=== PATIENT | male | born 1995 | race American Indian/Alaskan Native ===

== ENCOUNTER 2019-02-20 16:11 | Emergency (ER) | payer OTHER ==
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
--- NOTE | 2019-02-20 17:16 | XRay Report ---
Lumbar spine-2 views INDICATION: low back pain. COMPARISON: None. IMPRESSION: Normal alignment. No significant DJD. 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 Signer Name: Rivas Junior MD Signed: 02/20/2019 5:12 PM Workstation Name: [id number]
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
== END 2019-02-20 17:49 | disposition home or self-care (01) ==
LOC: ED 16:11
DX: S66.912A Strain of unspecified muscle, fascia and tendon at wrist and hand level, left hand, initial encounter (principal); M54.5 Low back pain; M25.522 Pain in left elbow; F12.10 Cannabis abuse, uncomplicated; Z79.899 Other long term (current) drug therapy; V49.59XA Passenger injured in collision with other motor vehicles in traffic accident, initial encounter; Y93.89 Activity, other specified; Y92.410 Unspecified street and highway as the place of occurrence of the external cause; Y99.8 Other external cause status
CPT/HCPCS: 72100

== ENCOUNTER 2020-02-01 08:32 | Emergency (ER) | payer SELFPAY ==
[2020-02-01 09:39] LABS: Hematocrit 44.2 % (35.5-45.6); Hemoglobin 14.7 gm/dl (11.8-15.2); Mean Corpuscular HGB Conc 33 % (32-34); Mean Corpuscular Volume 94 fl (84-94); Platelet Count 201 K/mm3 (140-440); Red Blood Count 4.69 M/mm3 (3.65-5.03)
[2020-02-01 09:56] LABS: Alanine Aminotransferase 30 units/L (7-56); Albumin 4.3 g/dL (3.9-5); BUN/Creatinine Ratio 18; Blood Urea Nitrogen 16 mg/dL (9-20); Calcium 9.3 mg/dL (8.4-10.2); Hemolysis Index 7
[2020-02-01] MEDS ORDERED: FAMOTIDINE 20 MG TAB PO ONE (10:23)
[2020-02-01] MEDS ORDERED: ALUM-MAG HYDROXIDE-SIMETHICONE 200-200-20MG/5ML ORAL LIQD 30 ML PO ONE (10:23)
[2020-02-01] MEDS ORDERED: HYOSCYAMINE SUBL 0.125 MG TAB SL ONE (10:23)
[2020-02-01 10:25] LABS: Bilirubin,Urine NEG (Negative); Blood,Urine NEG (Negative); Color,Urine Yellow (Yellow); Mucus,Urine FEW /HPF; RBC,Urine < 1.0 /HPF (0.0-6.0); Urobilinogen,Urine < 2.0 mg/dL (<2.0)
--- NOTE | 2020-02-01 10:39 | Emergency Department Report ---
ED Abdominal Pain HPI - General Chief Complaint: Abdominal Pain Stated Complaint: ABD PAIN Time Seen by Provider: 02/01/20 10:16 Source: patient Mode of arrival: Ambulatory Limitations: No Limitations - History of Present Illness Initial Comments: Patient is a 24-year-old male presents emergency room complaints of epigastric abdominal pain that began this morning. He states that at first it was moving around the abdomen. He states that it has since improved since this morning and he is already feeling better. He states initially he had some nausea but that has also improved. He denies any vomiting, diarrhea, fever, urinary symptoms, pain or swelling in the testicles. He states he is having normal bowel movements. He is tolerating p.o. intake. He states he has a past medical history of hemorrhoids. No allergies to medications. He endorses tobacco and marijuana use. He states he occasionally drinks alcohol. - Related Data Previous Rx's Medication Instructions Recorded Last Taken Type Ibuprofen [Motrin 600 MG tab] 600 mg PO Q8H PRN #20 tablet 02/20/19 Unknown Rx Famotidine [Pepcid] 40 mg PO QHS #14 tablet 02/01/20 Unknown Rx Mag Hydrox/Aluminum Hyd/Simeth 10 ml PO QID PRN #1 bottle 02/01/20 Unknown Rx [Maalox Advanced Suspension] Allergies Allergy/AdvReac Type Severity Reaction Status Date / Time No Known Allergies Allergy Verified 02/20/19 16:13 ED Review of Systems ROS: Stated complaint: ABD PAIN Other details as noted in HPI Comment: All other systems reviewed and negative ED Past Medical Hx - Past Medical History Previous Medical History?: No - Surgical History Past Surgical History?: No - Social History Smoking Status: Current Every Day Smoker Substance Use Type: Alcohol, Marijuana - Medications Home Medications: Home Medications Medication Instructions Recorded Confirmed Last Taken Type Ibuprofen [Motrin 600 MG tab] 600 mg PO Q8H PRN #20 tablet 02/20/19 Unknown Rx Famotidine [Pepcid] 40 mg PO QHS #14 tablet 02/01/20 Unknown Rx Mag Hydrox/Aluminum Hyd/Simeth 10 ml PO QID PRN #1 bottle 02/01/20 Unknown Rx [Maalox Advanced Suspension] ED Physical Exam - General Limitations: No Limitations General appearance: alert, in no apparent distress - Head Head exam: Present: atraumatic, normocephalic - Eye Eye exam: Present: normal appearance - ENT ENT exam: Present: mucous membranes moist - Respiratory Respiratory exam: Present: normal lung sounds bilaterally. Absent: respiratory distress, wheezes, rales, rhonchi, stridor, chest wall tenderness, accessory muscle use, decreased breath sounds, prolonged expiratory - Cardiovascular Cardiovascular Exam: Present: regular rate, normal rhythm, normal heart sounds. Absent: systolic murmur, diastolic murmur, rubs, gallop - GI/Abdominal GI/Abdominal exam: Present: soft, normal bowel sounds, other (negative murphys sign, negative mcburneys point ttp, no karimi turners or cullens sign). Absent: distended, tenderness, guarding, rebound, rigid - Neurological Exam Neurological exam: Present: alert, oriented X3 - Psychiatric Psychiatric exam: Present: normal affect, normal mood - Skin Skin exam: Present: warm, dry, intact ED Course Vital Signs 02/01/20 02/01/20 08:35 10:58 Temperature 98 F 98.2 F Pulse Rate 88 62 Respiratory 20 18 Rate Blood Pressure 104/48 Blood Pressure 116/77 [Right] O2 Sat by Pulse 96 100 Oximetry ED Medical Decision Making - Lab Data Result diagrams: 02/01/20 08:43 02/01/20 08:43 Lab Results 02/01/20 02/01/20 02/01/20 Range/Units 08:43 08:43 09:17 WBC 4.0 L (4.5-11.0) K/mm3 RBC 4.69 (3.65-5.03) M/mm3 Hgb 14.7 (11.8-15.2) gm/dl Hct 44.2 (35.5-45.6) % MCV 94 (84-94) fl MCH 31 (28-32) pg MCHC 33 (32-34) % RDW 14.0 (13.2-15.2) % Plt Count 201 (140-440) K/mm3 Lymph % (Auto) Boom Master Seg Neutrophils % Boom Master Sodium 142 (137-145) mmol/L Potassium 3.9 (3.6-5.0) mmol/L Chloride 103.0 (98-107) mmol/L Carbon Dioxide 27 (22-30) mmol/L Anion Gap 16 mmol/L BUN 16 (9-20) mg/dL Creatinine 0.9 (0.8-1.3) mg/dL Estimated GFR > 60 ml/min BUN/Creatinine Ratio 18 % Glucose 106 H (75-100) mg/dL Calcium 9.3 (8.4-10.2) mg/dL Total Bilirubin 0.40 (0.1-1.2) mg/dL AST 32 (5-40) units/L ALT 30 (7-56) units/L Alkaline Phosphatase 80 (35-129) units/L Total Protein 7.7 (6.3-8.2) g/dL Albumin 4.3 (3.9-5) g/dL Albumin/Globulin Ratio 1.3 % Lipase 23 (13-60) units/L Urine Color Yellow (Yellow) Urine Turbidity Clear (Clear) Urine pH 6.0 (5.0-7.0) Ur Specific [place] 1.024 (1.003-1.030) Urine Protein 30 mg/dl (Negative) mg/dL Urine Glucose (UA) Neg (Negative) mg/dL Urine Ketones Neg (Negative) mg/dL Urine Blood Neg (Negative) Urine Nitrite Neg (Negative) Urine Bilirubin Neg (Negative) Urine Urobilinogen < 2.0 (<2.0) mg/dL Ur Leukocyte Esterase Neg (Negative) Urine WBC (Auto) 4.0 (0.0-6.0) /HPF Urine RBC (Auto) < 1.0 (0.0-6.0) /HPF Urine Mucus Few /HPF Vital Signs 02/01/20 02/01/20 08:35 10:58 Temperature 98 F 98.2 F Pulse Rate 88 62 Respiratory 20 18 Rate Blood Pressure 104/48 Blood Pressure 116/77 [Right] O2 Sat by Pulse 96 100 Oximetry - Medical Decision Making Patient is a 24-year-old male presents emergency room complaints of epigastric abdominal pain that began this morning. He states that at first it was moving around the abdomen. He states that it has since improved since this morning and he is already feeling better. He states initially he had some nausea but that has also improved. He denies any vomiting, diarrhea, fever, urinary symptoms, pain or swelling in the testicles. He states he is having normal bowel movements. He is tolerating p.o. intake. He states he has a past medical history of hemorrhoids. No allergies to medications. He endorses tobacco and marijuana use. He states he occasionally drinks alcohol. Vitals are normal. On exam no abdominal tenderness palpation, no guarding, no rebound, no rigidity, no distention, no peritoneal signs, normal bowel sounds,negative murphys sign, negative mcburneys point ttp, no karimi turners or cullens sign. Labs are normal. UA is within normal limits. Patient given Pepcid, Levsin, Maalox and symptoms completely resolved. Patient is tolerating p.o. intake. Symptoms could be related to GERD versus PUD versus gas pain. Patient given prescription for Maalox and Pepcid. Do not suspect acute emergent intra-abdominal pathology at this time, his labs are normal, he has no leukocytosis, he is afebrile, no tachycardia, he has no abdominal tenderness on exam, he states that his symptoms are already improving prior to being examined. Advised patient to please take medication as prescribed. Increase your water intake. Please follow the diet for GERD/ulcers. please avoid tobacco use, marijuana use, and alcohol use. Follow-up with your primary care doctor. Follow-up with a GI doctor. Return to emergency room for any new or worsening symptoms. - Differential Diagnosis GERD, PUD, gas pain, SBO, pancreatitis, gastritis, cholecystitis Critical care attestation.: If time is entered above; I have spent that time in minutes in the direct care of this critically ill patient, excluding procedure time. ED Disposition Clinical Impression: Epigastric abdominal pain, Nausea Disposition: [id number]-01 TO HOME OR SELFCARE Is pt being admited?: No Does the pt Need Aspirin: No Condition: Stable Instructions: Diet for Ulcers and Gastritis (ED), Gastroesophageal Reflux Disease (ED) Additional Instructions: please take medication as prescribed. Increase your water intake. Please follow the diet for GERD/ulcers. please avoid tobacco use, marijuana use, and alcohol use. Follow-up with your primary care doctor. Follow-up with a GI doctor. Return to emergency room for any new or worsening symptoms. Prescriptions: Famotidine [Pepcid] 40 mg PO QHS #14 tablet Mag Hydrox/Aluminum Hyd/Simeth [Maalox Advanced Suspension] 10 ml PO QID PRN #1 bottle PRN Reason: pain Referrals: PRIMARY MD KELLIE [Primary Care Provider] - 2-3 Days RAYA GONZALES MD [Staff Physician] - 2-3 Days [facility] [Provider Group] - 2-3 Days [facility] [Provider Group] - 2-3 Days Time of Disposition: 10:51 Print Language: CONGOLESE
[2020-02-01 10:41] LABS: Total Cells Counted 100
[2020-02-01 10:42] LABS: Platelet Estimate Consistent w Auto; RBC Morphology Normal
[2020-02-01 11:00] VITALS: BP 116/77
== END 2020-02-01 10:59 | disposition home or self-care (01) ==
LOC: ED 08:32
DX: R10.13 Epigastric pain (principal); R11.0 Nausea; F17.200 Nicotine dependence, unspecified, uncomplicated; F12.10 Cannabis abuse, uncomplicated
CPT/HCPCS: 36415; 80053; 81001; 83690; 85007; 85025; 99283